=== PATIENT | female | born 1985 | race Caucasian/White ===

== ENCOUNTER 2025-04-22 18:16 | Emergency (ER) | payer OTHER, SELFPAY ==
[2025-04-22 18:20] VITALS: BP 112/70; PULSE 86; O2SAT 99
[2025-04-22 18:22] VITALS: BP 104/56; PULSE 76; RESP 19; TEMP 36.6; O2SAT 98; BMI 20.4
[2025-04-22 19:07] LABS: MANUAL DIFF FLAG NO
[2025-04-22 19:09] LABS: Hematocrit 30.2 % (37.0-47.0); Hemoglobin 9.6 g/dl (12.0-16.0); Imm Gran Abs Auto 0.02 X10*3/uL (0.00-0.03); Imm Gran Pct Auto 0.4 % (0.0-0.4); Lymphocytes Absolute Auto 1.3 X10*3/uL (1.2-4.9); Mean Corpuscular HGB Conc 31.8 g/dl (31.0-35.0); Mean Corpuscular Hemoglobin 26.2 pg (27.0-33.0); Mean Corpuscular Volume 82.3 fL (80.0-98.0); NRBC Abs Auto 0.000 X10*3/uL (0.0-0.012); NRBC Pct Auto 0.0 /100WBC (0.0-0.2); Platelet Count 162 X10*3/uL (160-400); Red Blood Count 3.67 X10*6/uL (4.20-5.50); White Blood Count 4.5 X10*3/uL (4.8-10.8)
[2025-04-22 19:28] LABS: Acetaminophen LAB < 3 mcg/mL (<30); Alanine Aminotransferase 14 U/L (0-31); Albumin Level 3.6 g/dL (3.5-5.0); Alkaline Phosphatase 60 U/L (39-117); Anion Gap 8 (12-20); Aspartate Amino Transferase 17 U/L (5-31); Blood Urea Nitrogen 15 mg/dL (9-16); Calcium 7.8 mg/dL (8.4-10.2); Carbon Dioxide 26 mmol/L (22-29); Chloride 111 mmol/L (96-108); Creatinine Clr Calc Pharmacy 101.9; Estimated Glomerular Filt Rate > 60; Magnesium 2.0 mg/dL (1.6-2.6); Potassium 4.0 mmol/L (3.3-5.1); Salicylate < 5.0 mg/dL (15-30); Sodium 141 mmol/L (135-145); Total Protein 5.4 g/dL (6.5-8.0)
[2025-04-22 20:06] LABS: Cannabinoid Screen Urine Not Detected (Not Detect)
--- NOTE | 2025-04-22 21:38 | ED.GENADULT ---
HPI - General Adult General Chief complaint: Psychiatric Symptoms Stated complaint: set 12 CHD self harm / agitated Time Seen by Provider: 04/22/25 18:27 Source: patient Limitations: no limitations History of Present Illness ED Provider: Karoline Elise PA-C HPI narrative: 39-year-old female presents from [facility] respite as a section 12. Patient is voluntarily at respite, today she asked to leave. She was seen by 1 of the clinicians, who in turn reached out to their closing supervisor. Per the section 12, it was reported that the patient ?was having thoughts of self-harm, was hitting herself, had an illogical thought process and she was emotionally labile. The patient emphatically denies, she is not suicidal she is not homicidal. Patient is simply wanted to leave respite. Related Data Home Medications ?Medication ?Instructions ?Recorded ?Confirmed lorazepam 1 mg tablet 1 mg PO TID PRN Anxiety 04/22/25 04/22/25 trazodone 50 mg tablet 50 mg PO BEDTIME 04/22/25 04/22/25 venlafaxine 75 mg capsule,extended 75 mg PO BID 04/22/25 04/22/25 release 24 hr Allergies Allergy/AdvReac Type Severity Reaction Status Date / Time diphenhydramine (From Allergy Unknown Verified 04/22/25 18:35 Benadryl) hydroxyzine (From Vistaril) Allergy Unknown Verified 04/22/25 18:35 Review of Systems Review of Systems: Yes all other systems are reviewed and are negative Constitutional: Constitutional: Denies fatigue and Denies fever(s) Cardiovascular: Cardiovascular: Denies chest pain and Denies dyspnea Respiratory: Respiratory: Denies dyspnea Gastrointestinal: Gastrointestinal: Denies abdominal pain, Denies nausea and Denies vomiting Psychiatric: Psychiatric: Denies homicidal ideation and Denies suicidal ideation Endocrine: Endocrine: Denies fatigue PMFSH Past Medical History Attestation statement: The following information was validated with the patient. Social History Social History Advance Directives: No Advance Directives Information Provided: Yes Do you have a plan to hurt others: No Plan Physical Exam ED Vital Signs: Vital Signs - 24 hr 04/22/25 18:22 Temperature 98 F Pulse Rate 76 Respiratory Rate 19 Blood Pressure 104/56 L Pulse Oximetry 98 Oxygen Delivery Method Room Air BMI result Body Mass Index 20.4 Const Other: Alert well-appearing Orientation/consciousness: patient oriented x3 Resp Effort & Inspection: normal respiratory effort Cardio Other: Normal peripheral perfusion Skin Other: Warm dry no rash Neuro General: patient oriented x3, gait normal, no focal motor deficits and CN's II-XI intact bilaterally Psych Other: Cooperative Course Reevaluation(s) Reevaluation #1: Spoke with the Kassie from the care team, the patient is appropriate for discharge. She feels as if the section 12 was inappropriate, the patient is not suicidal or homicidal, she was there at respite voluntarily. She has an outpatient therapist as well Time: 21:06 Medical Decision Making Medical Decision Making MDM Narrative: 39-year-old female presents from [facility] as a section 12. Patient is voluntarily at respite, today she asked to leave. She was seen by 1 of the clinicians, who in turn reached out to their closing supervisor. Per the section 12, it was reported that the patient ?was having thoughts of self-harm, was hitting herself, had an illogical thought process and she was emotionally labile. The patient emphatically denies, she is not suicidal she is not homicidal. Patient is simply wanted to leave respite. Problem: Psychiatric illness History: Per patient I have considered the following differential diagnoses: SI, HI, decompensated psychiatric illness, drug/alcohol intoxication Plan: Screening labs including serum ethanol and drug screen we will be obtained, the patient we will be seen by the care team. I have independently reviewed the following tests: Labs: No leukocytosis, not anemic, no electrolyte abnormality, U tox negative, ethanol less than 10 Lab Data 04/22/25 19:02 04/22/25 19:02 Labs: Lab Results 04/22/25 04/22/25 Range/Units 19:02 19:46 WBC 4.5 L (4.8-10.8) X10*3/uL RBC 3.67 L (4.20-5.50) X10*6/uL Hgb 9.6 L (12.0-16.0) g/dl Hct 30.2 L (37.0-47.0) % MCV 82.3 (80.0-98.0) fL MCH 26.2 L (27.0-33.0) pg MCHC 31.8 (31.0-35.0) g/dl RDW 15.9 (11.0-16.0) % Plt Count 162 (160-400) X10*3/uL MPV 9.6 (9.4-12.3) fL Immature Gran % (Auto) 0.4 (0.0-0.4) % Neut % (Auto) 61.1 (45-73) % Lymph % (Auto) 29.7 (20-40) % [place] % (Auto) 8.6 (2-11) % Eos % (Auto) 0.2 (0-4) % Baso % (Auto) 0.0 (0-2) % Lymph # (Auto) 1.3 (1.2-4.9) X10*3/uL [place] # (Auto) 0.4 (0.1-1.2) X10*3/uL Eos # (Auto) 0.0 (0.0-0.4) X10*3/uL Baso # (Auto) 0.0 (0.0-0.2) X10*3/uL Abs Immat Gran (auto) 0.02 (0.00-0.03) X10*3/uL Absolute Neuts (auto) 2.8 (2.0-8.3) x10*3/uL Absolute Nucleated RBC 0.000 (0.0-0.012) X10*3/uL Nucleated RBC % (auto) 0.0 (0.0-0.2) /100WBC Sodium 141 (135-145) mmol/L Potassium 4.0 (3.3-5.1) mmol/L Chloride 111 H (96-108) mmol/L Carbon Dioxide 26 (22-29) mmol/L Anion Gap 8 L (12-20) BUN 15 (9-16) mg/dL Creatinine 0.61 (0.5-1.4) mg/dL Estim Creat Clear Calc 101.9 Estimated GFR > 60 Random Glucose 110 (60-115) mg/dL Calcium 7.8 L (8.4-10.2) mg/dL Magnesium 2.0 (1.6-2.6) mg/dL Total Bilirubin 0.1 (0.0-1.0) mg/dL AST 17 (5-31) U/L ALT 14 (0-31) U/L Alkaline Phosphatase 60 (39-117) U/L Total Protein 5.4 L (6.5-8.0) g/dL Albumin 3.6 (3.5-5.0) g/dL Salicylates < 5.0 L (15-30) mg/dL Urine Opiates Screen Not Detected (Not Detect) Ur Buprenorphine Scrn Not Detected (Not Detect) ng/mL Ur Oxycodone Screen Not Detected (Not Detect) ng/mL Urine Methadone Screen Not Detected (Not Detect) ng/mL Urine Fentanyl Screen Not Detected (Not Detect) Acetaminophen < 3 (<30) mcg/mL Ur Barbiturates Screen Not Detected (Not Detect) Ur Phencyclidine Scrn Not Detected (Not Detect) Ur Amphetamines Screen Not Detected (Not Detect) U Benzodiazepines Scrn Not Detected (Not Detect) Urine Cocaine Screen Not Detected (Not Detect) U Marijuana (THC) Screen Not Detected (Not Detect) Ethyl Alcohol < 10 mg/dL Discharge Plan Discharge Clinical Impression: Anxiety Patient Disposition: Home, Self-Care Instructions: Anxiety (ED) Additional Instructions: You were seen by our care team, continue to follow up with your outpatient counselor/therapist. Prescriptions: No Action venlafaxine 75 mg capsule,extended release 24hr 75 mg PO BID lorazepam 1 mg tablet 1 mg PO TID PRN (Reason: Anxiety) trazodone 50 mg tablet 50 mg PO BEDTIME Stand Alone Forms: Work/School Release Print Language: Stateless
[2025-04-22 21:55] VITALS: BP 120/87; PULSE 67; RESP 16; TEMP 37; O2SAT 98
== END 2025-04-22 21:56 | disposition home or self-care (01) ==
PROVIDERS: Physician Assistant Medical; Emergency Provider Emergency Medicine
DX: F41.9 Anxiety disorder, unspecified (principal); R45.851 Suicidal ideations; Z79.899 Other long term (current) drug therapy
CPT/HCPCS: 36415; 80053; 80143; 80179; 80307; 83735; 85025; 99283; 99284; S9485